=== PATIENT | female | born 1950 | race Caucasian/White ===

== ENCOUNTER 2018-02-17 20:52 | Emergency (ER) | payer MEDICARE, OTHER ==
[2018-02-17 21:03] VITALS: RESP 18; O2SAT 100
[2018-02-17 21:47] LABS: BASOPHILS % (AUTO) 1 % (0-3); EOSINOPHILS % (AUTO) 4 % (0-9); HEMATOCRIT 33 % (35-47); HEMOGLOBIN 10.7 gm/dl (12.0-15.5); LYMPHOCYTES % (AUTO) 19.7 % (10-50); MEAN CORPUSCULAR HEMOGLOBIN 26.1 pg (27.0-32.0); MEAN CORPUSCULAR HGB CONC 32.1 gm/dl (32.0-36.0); MEAN CORPUSCULAR VOLUME 82 fL (81-99); MONOCYTES % (AUTO) 8.7 % (0-12)
[2018-02-17 21:55] LABS: CALCIUM 9.1 mg/dl (8.5-10.1); CREATININE 0.92 mg/dl (0.60-1.00); POTASSIUM 3.5 mMol/L (3.5-5.1)
[2018-02-17 22:16] VITALS: BP 152/82; PULSE 57; TEMP 96.2
== END 2018-02-17 22:15 | disposition home or self-care (01) | DRG 149 ==
LOC: ED 20:52
DX: R42 Dizziness and giddiness (principal); I10 Essential (primary) hypertension; J45.909 Unspecified asthma, uncomplicated; R55 Syncope and collapse
CPT/HCPCS: 36415; 80048; 85025; 93005; 99283; 99284

== ENCOUNTER 2018-05-26 10:46 | Day surgery (SDC) | payer OTHER ==
[2018-05-26] MEDS: PHENYLEPHRINE HCL 10% OPHTHAL SOL ONE ×3 (11:07→11:18)
[2018-05-26] MEDS: CYCLOPENTOLATE 1% SOL ONE ×3 (11:08→11:19)
[2018-05-26] MEDS: TROPICAMIDE 1% OPHTH SOL ONE ×3 (11:09→11:19)
[2018-05-26] MEDS ORDERED: KETOROLAC/HOME 0.5% SOL RIGHTEYE ONE ×3 (11:10→11:20)
[2018-05-26] MEDS ORDERED: MOXIFLOXACIN-HOME SOL RIGHTEYE ONE ×2 (11:10→11:15)
[2018-05-26] MEDS ORDERED: MIDAZOLAM 2 MG/2 ML SOL ONE (12:01)
[2018-05-26] MEDS ORDERED: POVIDONE IODINE 5% SOL ONE (12:24)
[2018-05-26] MEDS ORDERED: BSS W/ 0.5 MG P.F. EPI 1 BOTTLE ONE (12:24)
[2018-05-26] MEDS ORDERED: LIDOCAINE HCL 2% MPF 10 ML SOL ONE (12:24)
[2018-05-26] MEDS ORDERED: LABETALOL HYDROCHLORIDE 5 MG/ML SOL IV ONE (12:33)
[2018-05-26] MEDS ORDERED: ACETAZOLAMIDE 250 MG PO ONE (12:34)
[2018-05-26] MEDS ORDERED: ACETAZOLAMIDE 500 MG CER PO ONE (12:50)
[2018-05-26 12:55] VITALS: BP 167/84; PULSE 65; RESP 18; TEMP 97.8; O2SAT 97
== END 2018-05-26 13:18 | disposition home or self-care (01) | DRG 125 ==
LOC: SURG 10:46
PROVIDERS: ATTEND Ophthalmology
DX: H25.89 Other age-related cataract (principal)
CPT/HCPCS: J2250; A9270-GY; J3490